=== PATIENT | female | born 1960 | race Caucasian/White ===

== ENCOUNTER 2025-02-16 06:27 | Inpatient (IN) | payer MEDICARE, OTHER ==
[~2025-02-16] VITALS: Ht 165.1 cm; Wt 93.0 kg
[2025-02-16] MEDS ORDERED: dexaMETHasone SOD PHOSPHATE 2 ML ONE (06:52)
[2025-02-16] MEDS ORDERED: LIDOCAINE 2%-EPI 1:100,000 30 ML VIAL ONE (06:52)
[2025-02-16] MEDS ORDERED: ANESTHESIA TRAY IN PYXIS 1 EA TRAY MC ONE (06:52)
[2025-02-16] MEDS ORDERED: VANCOMYCIN 1 GM VIAL ONE (06:53)
[2025-02-16] MEDS ORDERED: ROCURONIUM BROMIDE 50 MG/5 ML ONE (07:16)
[2025-02-16] MEDS ORDERED: FENTANYL PF 250MCG/5ML AMPUL ONE (07:16)
[2025-02-16] MEDS ORDERED: SEVOFLURANE 250 ML BOTTLE IH ONE (07:49)
[2025-02-16] MEDS ORDERED: LABETALOL 20 MG/4 ML VIAL ONE (07:49)
[2025-02-16] MEDS ORDERED: FENTANYL PF 100MCG/2ML AMPUL ONE (10:52)
[2025-02-16] MEDS ORDERED: ENOXAPARIN SODIUM 30 MG/0.3 ML DISP.SYRIN SQ SCH (12:30)
[2025-02-16] MEDS ORDERED: Z GUARD REMEDY 4 OZ OINT TP PRN (12:30)
[2025-02-16] MEDS ORDERED: ATOR10TA PO (13:53)
[2025-02-16] MEDS ORDERED: ACETAMINOPHEN 325 MG TABLET PO PRN (14:00)
[2025-02-16 16:00] VITALS: BP 126/81; TEMP 98.2; O2SAT 97
[2025-02-16] MEDS: IV NS 0.9% 1,000 ML IV PRN (16:01)
[2025-02-16] MEDS: HYDROMORPHONE 1 MG/1 ML DISP.SYRIN IV PRN (17:46)
[2025-02-16 20:00] VITALS: BP 135/72; TEMP 98.4; O2SAT 96
[2025-02-16] MEDS: VANCOMYCIN 1 GM in IV D5W 250ml IV SCH (20:16)
[2025-02-16] MEDS: ONDANSETRON HCL/PF 4 MG/2 ML VIAL IV PRN (20:25)
[2025-02-17 06:43] LABS: BASOPHILS % (AUTO) 0.1 % (0.0-2.0); HEMATOCRIT 42 % (33-45); HEMOGLOBIN 13.7 g/dL (11.5-14.8); LYMPHOCYTES # (AUTO) 1.7 K/uL (0.8-4.8); LYMPHOCYTES % (AUTO) 13.7 % (20.0-44.0); MEAN CORPUSCULAR HEMOGLOBIN 30 PG (26.0-33.0); MEAN CORPUSCULAR HGB CONC 33 g/dl (31.0-36.0); MEAN CORPUSCULAR VOLUME 90 fL (82-100); MONOCYTES # (AUTO) 1.2 K/uL (0.1-1.30); NEUTROPHILS # (AUTO) 9.5 K/uL (1.8-8.9); NEUTROPHILS % (AUTO) 76.2 % (43.0-81.0); PLATELET COUNT (AUTO) 281 K/uL (150-450); RED BLOOD CELL COUNT(AUTO) 4.62 MIL/uL (4.0-5.2); WHITE BLOOD COUNT (AUTO) 12.5 K/uL (4.3-11.0)
[2025-02-17 08:00] VITALS: BP 129/69; TEMP 97.7; O2SAT 100
[2025-02-17 08:04] LABS: CALCIUM, SERUM 9.5 mg/dL (8.5-10.1); CREATININE 0.8 mg/dL (0.6-1.3); MAGNESIUM 2.4 mg/dL (1.8-2.4); PHOSPHORUS 4.5 mg/dL (2.5-4.9); POTASSIUM 4.5 mmol/L (3.5-5.1)
[2025-02-17] MEDS: PANTOPRAZOLE 40 MG VIAL IV SCH (08:20)
== END 2025-02-17 12:31 | disposition home or self-care (01) | DRG 142 ==
LOC: DS 06:27 → MED 12:10
PROVIDERS: ADMIT Nurse Practitioner Family; ATTEND Nurse Practitioner Family
PROC: 0N5T0ZZ Destruction of Right Mandible, Open Approach (ICD-10-PCS; principal; 2025-02-16 07:30)
PROC: 0NBR0ZX Excision of Maxilla, Open Approach, Diagnostic (ICD-10-PCS; principal; 2025-02-16 07:30)
PROC: 0NUR07Z Supplement Maxilla with Autologous Tissue Substitute, Open Approach (ICD-10-PCS; principal; 2025-02-16 07:30)
PROC: 0NST04Z Reposition Right Mandible with Internal Fixation Device, Open Approach (ICD-10-PCS; principal; 2025-02-16 07:30)
PROC: 0N5V0ZZ Destruction of Left Mandible, Open Approach (ICD-10-PCS; principal; 2025-02-16 07:30)
PROC: 0NSV04Z Reposition Left Mandible with Internal Fixation Device, Open Approach (ICD-10-PCS; principal; 2025-02-16 07:30)
PROC: 0CBH0ZZ Excision of Left Submaxillary Gland, Open Approach (ICD-10-PCS; principal; 2025-02-16 07:30)
PROC: 09UQ07Z Supplement Right Maxillary Sinus with Autologous Tissue Substitute, Open Approach (ICD-10-PCS; principal; 2025-02-16 07:30)
PROC: 0NSR04Z Reposition Maxilla with Internal Fixation Device, Open Approach (ICD-10-PCS; principal; 2025-02-16 07:30)
PROC: 0NUV07Z Supplement Left Mandible with Autologous Tissue Substitute, Open Approach (ICD-10-PCS; principal; 2025-02-16 07:30)
PROC: 0NUT07Z Supplement Right Mandible with Autologous Tissue Substitute, Open Approach (ICD-10-PCS; principal; 2025-02-16 07:30)
PROC: 09UR07Z Supplement Left Maxillary Sinus with Autologous Tissue Substitute, Open Approach (ICD-10-PCS; principal; 2025-02-16 07:30)
DX: S02.40DA Maxillary fracture, left side, initial encounter for closed fracture (principal); S02.609A Fracture of mandible, unspecified, initial encounter for closed fracture; S02.40CA Maxillary fracture, right side, initial encounter for closed fracture; X58.XXXA Exposure to other specified factors, initial encounter; Y93.9 Activity, unspecified; Y92.89 Other specified places as the place of occurrence of the external cause; Y99.9 Unspecified external cause status; J32.0 Chronic maxillary sinusitis; D16.4 Benign neoplasm of bones of skull and face; D16.5 Benign neoplasm of lower jaw bone; M27.2 Inflammatory conditions of jaws; D11.9 Benign neoplasm of major salivary gland, unspecified; Z90.12 Acquired absence of left breast and nipple; E78.5 Hyperlipidemia, unspecified
CPT/HCPCS: 36415; 80048-TC; 83735-TC; 84100-TC; 85025-TC; 88305-TC; 88311-TC; 94799-TC; A4223; A4338; C1713; G0378; J0461; J1100; J1171; J2405; J2470; J2704; J3010; J3370; J3490; J7030; J7060

== ENCOUNTER 2025-06-22 09:01 | Inpatient (IN) | payer MEDICARE, OTHER ==
[~2025-06-22] VITALS: Ht 165.1 cm; Wt 91.3 kg
[~2025-06-22 09:01] MED LIST: ATOR10TA PO
[2025-06-22] MEDS ORDERED: dexaMETHasone SOD PHOSPHATE 2 ML ONE (09:40)
[2025-06-22] MEDS ORDERED: LIDOCAINE 2%-EPI 1:100,000 30 ML VIAL ONE (09:40)
[2025-06-22] MEDS ORDERED: VANCOMYCIN 1 GM VIAL ONE (09:40)
[2025-06-22] MEDS ORDERED: FENTANYL PF 100MCG/2ML AMPUL ONE (12:14)
[2025-06-22 12:50] VITALS: BP 141/86; TEMP 97.9; O2SAT 94
[2025-06-22 13:05] VITALS: BP 138/74; TEMP 98.6; O2SAT 95
[2025-06-22 13:20] VITALS: BP 136/74; TEMP 98.2; O2SAT 96
[2025-06-22] MEDS ORDERED: ONDANSETRON HCL/PF 4 MG/2 ML VIAL IVP PRN ×2 (13:30→14:00)
[2025-06-22] MEDS ORDERED: ACETAMINOPHEN 325 MG TABLET PO PRN ×2 (13:30→14:00)
[2025-06-22 13:35] VITALS: BP 135/75; TEMP 98.2; O2SAT 96
[2025-06-22 13:50] VITALS: BP 138/77; TEMP 98.5; O2SAT 96
[2025-06-22] MEDS ORDERED: MAG HYDROX/AL HYDROX/SIMETH 30 ML UDC PO PRN (14:00)
[2025-06-22] MEDS ORDERED: MAGNESIUM HYDROXIDE 30 ML UDC PO PRN (14:00)
[2025-06-22] MEDS ORDERED: MORPHINE SULFATE INJ 2 MG/ML DISP.SYRIN IV PRN (14:00)
[2025-06-22] MEDS ORDERED: ACETAMINOPHEN W/ CODEINE#3 1 EA TABLET PO PRN (14:00)
[2025-06-22] MEDS: HYDROMORPHONE 1 MG/1 ML DISP.SYRIN IV PRN (14:05)
[2025-06-22] MEDS: IV NS 0.9% 1,000 ML IV PRN (17:05)
[2025-06-22 20:00] VITALS: BP 135/72; TEMP 98.6; O2SAT 97
[2025-06-22] MEDS: VANCOMYCIN 1 GM in IV D5W 250ml IV SCH (21:59)
[2025-06-23 07:06] LABS: PLATELET COUNT (AUTO) 259 K/uL (150-450); RED BLOOD CELL COUNT(AUTO) 4.66 MIL/uL (4.0-5.2); RED CELL DISTRIBUTION WIDTH 13.4 % (11.5-15.0); WHITE BLOOD COUNT (AUTO) 10.3 K/uL (4.3-11.0)
[2025-06-23 07:14] LABS: CALCIUM, SERUM 9.4 mg/dL (8.5-10.1); CREATININE 0.9 mg/dL (0.6-1.3); PHOSPHORUS 4.1 mg/dL (2.5-4.9); SODIUM SERUM 143.0 mmol/L (136-145); UREA NITROGEN, BLOOD 10.0 mg/dL (7-18)
[2025-06-23 07:30] VITALS: BP 137/63; TEMP 98.4; O2SAT 98
[2025-06-23] MEDS: PANTOPRAZOLE 40 MG TABLET.DR PO SCH (07:50)
== END 2025-06-23 14:25 | disposition home or self-care (01) | DRG 501 ==
LOC: DS 09:01 → MED 13:07
PROVIDERS: ADMIT Nurse Practitioner Family; ATTEND Nurse Practitioner Family
PROC: 0KB10ZZ Excision of Facial Muscle, Open Approach (ICD-10-PCS; 2025-06-22)
PROC: 0NSR0ZZ Reposition Maxilla, Open Approach (ICD-10-PCS; 2025-06-22)
PROC: 09BQ0ZZ Excision of Right Maxillary Sinus, Open Approach (ICD-10-PCS; 2025-06-22)
PROC: 0NUR07Z Supplement Maxilla with Autologous Tissue Substitute, Open Approach (ICD-10-PCS; 2025-06-22)
PROC: 09UQ07Z Supplement Right Maxillary Sinus with Autologous Tissue Substitute, Open Approach (ICD-10-PCS; 2025-06-22)
PROC: 0N5R0ZZ Destruction of Maxilla, Open Approach (ICD-10-PCS; 2025-06-22)
PROC: 0NBV0ZX Excision of Left Mandible, Open Approach, Diagnostic (ICD-10-PCS; 2025-06-22)
PROC: 0NBT0ZX Excision of Right Mandible, Open Approach, Diagnostic (ICD-10-PCS; 2025-06-22)
PROC: 0NPW04Z Removal of Internal Fixation Device from Facial Bone, Open Approach (ICD-10-PCS; principal; 2025-06-22 12:30)
DX: T84.69XA Infection and inflammatory reaction due to internal fixation device of other site, initial encounter (principal); S02.40CA Maxillary fracture, right side, initial encounter for closed fracture; M27.2 Inflammatory conditions of jaws; E78.5 Hyperlipidemia, unspecified; X58.XXXA Exposure to other specified factors, initial encounter; E66.9 Obesity, unspecified; Z68.33 Body mass index [BMI] 33.0-33.9, adult; R73.9 Hyperglycemia, unspecified; Y92.9 Unspecified place or not applicable; Z79.899 Other long term (current) drug therapy; M89.38 Hypertrophy of bone, other site; Y83.8 Other surgical procedures as the cause of abnormal reaction of the patient, or of later complication, without mention of misadventure at the time of the procedure; Y92.009 Unspecified place in unspecified non-institutional (private) residence as the place of occurrence of the external cause
CPT/HCPCS: 36415; 80048-TC; 83735-TC; 84100-TC; 85025-TC; A4217; A4338; C1713; G0378; J0360; J1100; J1171; J2704; J3010; J3373; J3490; J7030; J7060